=== PATIENT | female | born 1965 | race Caucasian/White ===

== ENCOUNTER 2023-06-28 13:27 | Emergency (ER) | payer OTHER ==
[2023-06-28 13:55] VITALS: RESP 18; TEMP 97.8; BMI 28.5
[2023-06-28] MEDS ORDERED: ACETAMINOPHEN 325 MG TABLET (FP) PO ONE (15:04)
[2023-06-28] MEDS ORDERED: ASPIRIN 81 MG CHEWABLE TABLETS PO ONE (15:04)
[2023-06-28] MEDS ORDERED: ASPIRIN 81 MG CHEWABLE TABLETS ONE (15:42)
[2023-06-28] MEDS ORDERED: ACETAMINOPHEN 325 MG TABLET (FP) ONE (15:43)
[2023-06-28 15:45] LABS: BASO % 0.9 % (0-2.0); EOS % 0.3 % (0-4.5); HEMATOCRIT 37.9 % (32.4-45.2); HEMOGLOBIN 12.6 GM/dL (10.7-15.3); MCH 28.5 pg (25.7-33.7); MCHC 33.3 g/dl (32.0-36.0); MEAN CELL VOLUME 85.8 fl (80-96); MEAN PLT VOLUME 8.4 fl (7.5-11.1); MONO % 7.7 % (3.8-10.2); NEUT % 58.1 % (42.8-82.8); PLATELET COUNT 253 10^3/uL (134-434); RBC 4.42 M/mm3 (3.60-5.2); WHITE BLOOD COUNT 7.6 K/mm3 (4.0-10.0)
[2023-06-28 15:53] LABS: INR 1.05 (0.83-1.09); PROTHROMBIN TIME (PATIENT) 12.2 SEC (9.7-13.0)
[2023-06-28 15:56] LABS: ACTIVATED PTT 29.5 SECONDS (25.2-36.5)
[2023-06-28 16:03] LABS: POTASSIUM 3.9 mmol/L (3.5-5.1)
[2023-06-28 16:05] LABS: CALCIUM 9.6 mg/dL (8.5-10.1)
[2023-06-28 16:06] LABS: ALBUMIN 4.2 g/dl (3.4-5.0); BLOOD UREA NITROGEN 11.8 mg/dL (7-18)
[2023-06-28 16:08] LABS: CREATININE 0.6 mg/dL (0.55-1.3)
[2023-06-28 16:10] LABS: BILIRUBIN,TOTAL 0.3 mg/dL (0.2-1); TOT PROT 8.2 g/dl (6.4-8.2)
[2023-06-28 18:17] VITALS: BP 1444/92; PULSE 72
== END 2023-06-28 18:41 | disposition home or self-care (01) ==
LOC: JER 13:27
DX: R07.9 Chest pain, unspecified (principal); M25.512 Pain in left shoulder; Z20.822 Contact with and (suspected) exposure to COVID-19
CPT/HCPCS: 0241U-QW; 36415; 71046-TC-FY; 71275-TC; 74174-TC; 80053; 82550; 84484; 85025; 85379; 85610; 85730; 86850; 86900; 86901; 93005; 93010; 99285-25; Q9967